=== PATIENT | female | born 1935 | race African-American/Black ===

== ENCOUNTER 2022-12-29 22:49 | Inpatient (IN) | payer BC, MEDICARE ==
[~2022-12-29] VITALS: Ht 167.6 cm; Wt 69.4 kg
[~2022-12-29 22:49] MED LIST: ATEN-42 PO; METF-414 PO; NATE120T PO; OMEP20CA4 PO
[2022-12-29 23:39] LABS: BASOPHILS % 0.4 % (0.0-2.0); EOSINOPHILS % 1.2 % (0.0-5.0); HEMATOCRIT. 36.7 % (36.0-48.0); HEMOGLOBIN. 12.3 g/dL (12.0-16.0); LYMPHOCYTES % 11.5 % (20.0-50.0); MEAN CORPUSCULAR HEMOGLOBIN 27.7 pg (28.0-32.0); MEAN CORPUSCULAR VOLUME 82.7 fL (81.0-99.0); MEAN PLATELET VOLUME 8.7 fl (7.4-10.4); MONOCYTES % 3.9 % (2.0-8.0); PLATELET 332 x1000/uL (130-400); RED BLOOD CELL COUNT 4.43 mill/uL (4.2-5.4); RED CELL DISTRIBUTION WIDTH 18.2 % (11.6-14.6)
[2022-12-29 23:47] LABS: CHLORIDE 103 mEq/L (98-107)
[2022-12-29 23:51] LABS: INR 1.1; PARTIAL THROMBOPLASTIN TIME 28.2 sec (23.4-31.0); PROTHROMBIN TIME 11.4 sec (9.6-11.0)
[2022-12-30] MEDS ORDERED: FUROSEMIDE 40MG/4ML VIAL IVP ONE (00:15)
[2022-12-30 00:24] LABS: CLARITY URINE CLOUDY (CLEAR); COLOR URINE YELLOW (YELLOW); KETONES URINE TRACE (NEGATIVE); LEUKOCYTE ESTERASE URINE NEGATIVE (NEGATIVE); NITRITE URINE NEGATIVE (NEGATIVE); OCCULT BLOOD URINE NEGATIVE (NEGATIVE); PROTEIN URINE 3+ (NEGATIVE)
[2022-12-30] MEDS ORDERED: FUROSEMIDE 40MG/4ML VIAL ONE (00:55)
[2022-12-30] MEDS ORDERED: POTA-185 PO (05:01)
[2022-12-30] MEDS ORDERED: DAPA10TA PO (05:01)
[2022-12-30] MEDS ORDERED: FURO40TA5 PO (05:01)
[2022-12-30] MEDS ORDERED: QUET25TA36 PO (05:01)
[2022-12-30] MEDS ORDERED: ATOR20TA65 PO (05:01)
[2022-12-30] MEDS ORDERED: LORA2TAB95 PO (05:01)
[2022-12-30] MEDS ORDERED: PANT40TA51 PO (05:01)
[2022-12-30 05:07] VITALS: BP 139/63
[2022-12-30 05:20] VITALS: BP 139/63
[2022-12-30] MEDS ORDERED: ONDANSETRON HCL 4MG/2ML INJ IV PRN (10:15)
[2022-12-30] MEDS ORDERED: FUROSEMIDE 40MG/4ML VIAL IVP SCH (10:30)
[2022-12-30] MEDS ORDERED: IPRATROPIUM/ALBUTEROL 0.5-3(2.5)MG/3ML NEB HHN PRN (10:30)
[2022-12-30] MEDS ORDERED: CARVEDILOL 3.125 MG TABLET PO SCH (11:00)
[2022-12-30 12:00] VITALS: BP 100/63
[2022-12-30] MEDS ORDERED: IPRATROPIUM/ALBUTEROL 0.5-3(2.5)MG/3ML NEB HHN SCH ×2 (12:00→14:45)
[2022-12-30] MEDS: ATORVASTATIN CALCIUM 20MG TABLET PO SCH (12:28)
[2022-12-30] MEDS: ASPIRIN 81MG TABLET PO SCH (12:28)
[2022-12-30] MEDS: ATENOLOL 25MG TABLET PO SCH ×2 (12:28→16:54)
[2022-12-30] MEDS: ENOXAPARIN 30MG/0.3ML SYR SUBCUT SCH (12:28)
[2022-12-30] MEDS: AZITHROMYCIN 500 MG in DEXT 5% WATER 250 ML IV SCH (13:32)
[2022-12-30] MEDS: CEFTRIAXONE 1,000 MG in DEXTROSE 5% WATER 50 ML IV SCH (13:33)
[2022-12-30 14:10] LABS: BG BASE EXCESS -0.4 mmol/L (-2.0-2.0); BG CARBOXYHEMOGLOBIN 0.9 % (0.5-1.5); BG FRACTION INSPIRED OXYGEN 21; BG HCO3 ACT 24.6 mmol/L (22.0-26.0); BG METHEMOGLOBIN 0.3 % (0.0-1.5); BG OXYGEN SATURATION 91.9 % (92.0-98.5); BG OXYHEMOGLOBIN 90.8 % (94.0-97.0); BG PCO2 41.5 mmHg (35.0-45.0); BG PO2 65.5 mmHg (75.0-100.0); BG SAMPLE SITE RIGHT BRACHIAL; BG TOTAL HEMOGLOBIN 12.6 g/dL (12.0-18.0); BG VENT MODE ROOM AIR
[2022-12-30] MEDS: PANTOPRAZOLE 40MG DR TABLET PO SCH (15:00)
[2022-12-30 16:00] VITALS: BP 101/73
[2022-12-30] MEDS: IPRATROPIUM/ALBUTEROL 0.5-3(2.5)MG/3ML NEB HHN SCH ×2 (16:37→20:58)
[2022-12-30] MEDS: INSULIN LISPRO 100 UNITS/ML SUBCUT SCH ×2 (16:54→21:00)
[2022-12-30] MEDS: BLOOD SUGAR DIAGNOSTIC STRIP TEST SCH ×2 (16:58→21:00)
[2022-12-30] MEDS: QUETIAPINE FUMARATE 25MG TABLET PO SCH (19:42)
[2022-12-30 20:00] VITALS: BP 123/49
[2022-12-30] MEDS ORDERED: DEXAMETHASONE 10 MG/ML VIAL IV SCH (22:00)
[2022-12-31] VITALS: BP 130/51
[2022-12-31] MEDS: IPRATROPIUM/ALBUTEROL 0.5-3(2.5)MG/3ML NEB HHN SCH ×4 (00:21→20:23)
[2022-12-31 01:21] LABS: CREATINE KINASE 60 IU/L (26-192)
[2022-12-31 04:00] VITALS: BP 105/64
[2022-12-31 06:38] LABS: BASOPHILS % 1.1 % (0.0-2.0); EOSINOPHILS % 2.4 % (0.0-5.0); HEMATOCRIT. 29.6 % (36.0-48.0); HEMOGLOBIN. 10.2 g/dL (12.0-16.0); LYMPHOCYTES % 14.9 % (20.0-50.0); MEAN CORPUSCULAR HEMOGLOBIN 28.2 pg (28.0-32.0); MEAN CORPUSCULAR VOLUME 82.5 fL (81.0-99.0); MEAN PLATELET VOLUME 9.3 fl (7.4-10.4); MONOCYTES % 8.1 % (2.0-8.0); NEUTROPHILS % 73.5 % (40.0-76.0); PLATELET 273 x1000/uL (130-400); RED BLOOD CELL COUNT 3.59 mill/uL (4.2-5.4); RED CELL DISTRIBUTION WIDTH 18.2 % (11.6-14.6)
[2022-12-31] MEDS: BLOOD SUGAR DIAGNOSTIC STRIP TEST SCH ×4 (07:40→21:42)
[2022-12-31 08:00] VITALS: BP 138/63
[2022-12-31] MEDS: INSULIN LISPRO 100 UNITS/ML SUBCUT SCH ×4 (08:10→21:00)
[2022-12-31] MEDS ORDERED: PANTOPRAZOLE 40MG DR TABLET PO SCH (09:00)
[2022-12-31] MEDS ORDERED: SODIUM POLYSTYRENE SULFONATE 15 G/60 ML BOT PO NR (09:30)
[2022-12-31] MEDS: ATORVASTATIN CALCIUM 20MG TABLET PO SCH (09:53)
[2022-12-31] MEDS: ENOXAPARIN 30MG/0.3ML SYR SUBCUT SCH (09:54)
[2022-12-31] MEDS: ASPIRIN 81MG TABLET PO SCH (09:54)
[2022-12-31] MEDS: PANTOPRAZOLE 40MG DR TABLET PO SCH (09:54)
[2022-12-31] MEDS: SODIUM CHLORIDE 0.9% 1,000 ML IV SCH (10:01)
[2022-12-31 11:24] LABS: *AMPHETAMINES SCREEN URINE NEGATIVE (NEGATIVE); *BARBITURATES SCREEN URINE NEGATIVE (NEGATIVE); *BENZODIAZEPINES SCREEN URINE NEGATIVE (NEGATIVE); *COCAINE SCREEN URINE NEGATIVE (NEGATIVE); CANNABINOID URINE SCREEN NEGATIVE (NEGATIVE); METHADONE URINE SCREEN NEGATIVE (NEGATIVE); OPIATES URINE SCREEN NEGATIVE (NEGATIVE); PHENCYCLIDINE URINE SCREEN NEGATIVE (NEGATIVE)
[2022-12-31 12:00] VITALS: BP 114/57
[2022-12-31] MEDS: AZITHROMYCIN 500 MG in DEXT 5% WATER 250 ML IV SCH (12:36)
[2022-12-31] MEDS: CEFTRIAXONE 1,000 MG in DEXTROSE 5% WATER 50 ML IV SCH (12:36)
[2022-12-31 16:00] VITALS: BP 112/61
[2022-12-31] MEDS ORDERED: LORA-250 PO (18:51)
[2022-12-31] MEDS ORDERED: APIX2.5T PO (18:52)
[2022-12-31] MEDS ORDERED: METO-396 PO (18:52)
[2022-12-31] MEDS ORDERED: AMI2 PO (18:53)
[2022-12-31] MEDS ORDERED: QUET25TA PO (18:54)
[2022-12-31] MEDS ORDERED: ENOXAPARIN 40MG/0.4ML SYR SUBCUT SCH (19:00)
[2022-12-31] MEDS: DEXAMETHASONE 4MG/ML 1ML VIAL IV SCH (20:21)
[2022-12-31] MEDS: QUETIAPINE FUMARATE 25MG TABLET PO SCH (20:22)
[2022-12-31 20:47] VITALS: BP 122/62
[2023-01-01 00:44] VITALS: BP 114/51
[2023-01-01] MEDS: IPRATROPIUM/ALBUTEROL 0.5-3(2.5)MG/3ML NEB HHN SCH ×6 (01:05→21:14)
[2023-01-01 04:00] VITALS: BP 138/66
[2023-01-01] MEDS: BLOOD SUGAR DIAGNOSTIC STRIP TEST SCH ×4 (06:07→20:51)
[2023-01-01] MEDS: INSULIN LISPRO 100 UNITS/ML SUBCUT SCH ×4 (06:08→20:51)
[2023-01-01 06:57] LABS: BASOPHILS % 0.1 % (0.0-2.0); EOSINOPHILS % 0.1 % (0.0-5.0); HEMATOCRIT. 29.5 % (36.0-48.0); HEMOGLOBIN. 9.9 g/dL (12.0-16.0); LYMPHOCYTES % 16.7 % (20.0-50.0); MEAN CORPUSCULAR HEMOGLOBIN 27.7 pg (28.0-32.0); MEAN CORPUSCULAR VOLUME 82.6 fL (81.0-99.0); MEAN PLATELET VOLUME 9.3 fl (7.4-10.4); MONOCYTES % 3.8 % (2.0-8.0); NEUTROPHILS % 79.3 % (40.0-76.0); PLATELET 291 x1000/uL (130-400); RED BLOOD CELL COUNT 3.57 mill/uL (4.2-5.4); RED CELL DISTRIBUTION WIDTH 18.2 % (11.6-14.6)
[2023-01-01 08:00] VITALS: BP 150/76
[2023-01-01] MEDS: ATORVASTATIN CALCIUM 20MG TABLET PO SCH (09:00)
[2023-01-01] MEDS: ASPIRIN 81MG TABLET PO SCH (10:10)
[2023-01-01] MEDS: FAMOTIDINE 20MG TABLET PO SCH (10:10)
[2023-01-01] MEDS: ENOXAPARIN 80MG/0.8ML SYR SUBCUT SCH (10:10)
[2023-01-01] MEDS: DEXAMETHASONE 4MG/ML 1ML VIAL IV SCH (10:10)
[2023-01-01 12:00] VITALS: BP 144/69
[2023-01-01 16:00] VITALS: BP 148/88
[2023-01-01] MEDS: AZITHROMYCIN 500 MG in DEXT 5% WATER 250 ML IV SCH (16:33)
[2023-01-01] MEDS: CEFTRIAXONE 1,000 MG in DEXTROSE 5% WATER 50 ML IV SCH (16:33)
[2023-01-01 20:00] VITALS: BP 137/58
[2023-01-01] MEDS: QUETIAPINE FUMARATE 25MG TABLET PO SCH (21:10)
[2023-01-02] VITALS: BP 121/58
[2023-01-02] MEDS: IPRATROPIUM/ALBUTEROL 0.5-3(2.5)MG/3ML NEB HHN SCH ×6 (01:05→20:38)
[2023-01-02 04:00] VITALS: BP 118/54
[2023-01-02] MEDS: BLOOD SUGAR DIAGNOSTIC STRIP TEST SCH ×4 (07:40→21:00)
[2023-01-02 08:00] VITALS: BP 115/64
[2023-01-02] MEDS: INSULIN LISPRO 100 UNITS/ML SUBCUT SCH ×4 (08:10→21:00)
[2023-01-02 09:06] LABS: IMMUNOGLOBULIN A 527 mg/dL (64-422); IMMUNOGLOBULIN G 3240 mg/dL (586-1602); IMMUNOGLOBULIN M 40 mg/dL (26-217)
[2023-01-02] MEDS: ATORVASTATIN CALCIUM 20MG TABLET PO SCH (10:20)
[2023-01-02] MEDS: DEXAMETHASONE 4MG TABLET PO SCH (10:20)
[2023-01-02] MEDS: ASPIRIN 81MG TABLET PO SCH (10:20)
[2023-01-02] MEDS: ENOXAPARIN 80MG/0.8ML SYR SUBCUT SCH (10:21)
[2023-01-02 11:54] LABS: BASOPHILS % 0.2 % (0.0-2.0); EOSINOPHILS % 0.1 % (0.0-5.0); HEMATOCRIT. 29.2 % (36.0-48.0); HEMOGLOBIN. 10.1 g/dL (12.0-16.0); LYMPHOCYTES % 12.7 % (20.0-50.0); MEAN CORPUSCULAR HEMOGLOBIN 28.5 pg (28.0-32.0); MEAN CORPUSCULAR VOLUME 82.2 fL (81.0-99.0); PLATELET 315 x1000/uL (130-400); RED BLOOD CELL COUNT 3.55 mill/uL (4.2-5.4); RED CELL DISTRIBUTION WIDTH 18.3 % (11.6-14.6)
[2023-01-02 12:00] VITALS: BP 120/71
[2023-01-02 16:00] VITALS: BP 124/60
[2023-01-02 20:00] VITALS: BP 149/94
[2023-01-02] MEDS: QUETIAPINE FUMARATE 25MG TABLET PO SCH (21:00)
[2023-01-03] VITALS: BP 137/65
[2023-01-03] MEDS: IPRATROPIUM/ALBUTEROL 0.5-3(2.5)MG/3ML NEB HHN SCH ×5 (00:46→16:33)
[2023-01-03 04:00] VITALS: BP 115/55
[2023-01-03] MEDS: BLOOD SUGAR DIAGNOSTIC STRIP TEST SCH ×4 (06:00→21:00)
[2023-01-03 06:49] LABS: BASOPHILS % 0.1 % (0.0-2.0); HEMATOCRIT. 30.2 % (36.0-48.0); HEMOGLOBIN. 10.4 g/dL (12.0-16.0); LYMPHOCYTES % 11.3 % (20.0-50.0); MEAN CORPUSCULAR HEMOGLOBIN 28.4 pg (28.0-32.0); MEAN CORPUSCULAR VOLUME 82.5 fL (81.0-99.0); MEAN PLATELET VOLUME 8.9 fl (7.4-10.4); MONOCYTES % 11.8 % (2.0-8.0); NEUTROPHILS % 76.8 % (40.0-76.0); PLATELET 295 x1000/uL (130-400); RED BLOOD CELL COUNT 3.67 mill/uL (4.2-5.4); RED CELL DISTRIBUTION WIDTH 18.3 % (11.6-14.6)
[2023-01-03 08:00] VITALS: BP 124/60
[2023-01-03] MEDS: INSULIN LISPRO 100 UNITS/ML SUBCUT SCH ×3 (08:10→21:00)
[2023-01-03] MEDS: ASPIRIN 81MG TABLET PO SCH (09:51)
[2023-01-03] MEDS: DEXAMETHASONE 4MG TABLET PO SCH (09:51)
[2023-01-03] MEDS: FAMOTIDINE 20MG TABLET PO SCH (09:51)
[2023-01-03] MEDS: ENOXAPARIN 80MG/0.8ML SYR SUBCUT SCH (09:51)
[2023-01-03] MEDS: ATORVASTATIN CALCIUM 20MG TABLET PO SCH (09:51)
[2023-01-03 12:00] VITALS: BP 118/79
[2023-01-03 16:00] VITALS: BP 118/59
[2023-01-03 20:00] VITALS: BP 120/72
[2023-01-03] MEDS: SODIUM CHLORIDE 0.9% 1,000 ML IV SCH (20:20)
[2023-01-03] MEDS: QUETIAPINE FUMARATE 25MG TABLET PO SCH (22:21)
[2023-01-04] VITALS: BP 123/70
[2023-01-04] MEDS: IPRATROPIUM/ALBUTEROL 0.5-3(2.5)MG/3ML NEB HHN SCH ×4 (00:45→12:25)
[2023-01-04 04:00] VITALS: BP 104/71
[2023-01-04 05:54] LABS: BASOPHILS % 0.1 % (0.0-2.0); EOSINOPHILS % 0.1 % (0.0-5.0); HEMATOCRIT. 29.5 % (36.0-48.0); HEMOGLOBIN. 10.1 g/dL (12.0-16.0); LYMPHOCYTES % 10.6 % (20.0-50.0); MEAN CORPUSCULAR HEMOGLOBIN 28.3 pg (28.0-32.0); MEAN CORPUSCULAR VOLUME 82.6 fL (81.0-99.0); MONOCYTES % 9.9 % (2.0-8.0); NEUTROPHILS % 79.3 % (40.0-76.0); PLATELET 280 x1000/uL (130-400); RED BLOOD CELL COUNT 3.58 mill/uL (4.2-5.4); RED CELL DISTRIBUTION WIDTH 18.7 % (11.6-14.6)
[2023-01-04] MEDS: BLOOD SUGAR DIAGNOSTIC STRIP TEST SCH ×4 (07:40→20:59)
[2023-01-04 08:00] VITALS: BP 147/70
[2023-01-04] MEDS: INSULIN LISPRO 100 UNITS/ML SUBCUT SCH ×4 (08:10→20:59)
[2023-01-04] MEDS: ATORVASTATIN CALCIUM 20MG TABLET PO SCH (08:53)
[2023-01-04] MEDS: DEXAMETHASONE 4MG TABLET PO SCH (08:53)
[2023-01-04] MEDS: ENOXAPARIN 80MG/0.8ML SYR SUBCUT SCH (08:54)
[2023-01-04 12:00] VITALS: BP 111/69
[2023-01-04 16:00] VITALS: BP 138/71
[2023-01-04] MEDS: SODIUM CHLORIDE 0.9% 1,000 ML IV SCH (17:38)
[2023-01-04 20:00] VITALS: BP 173/89
[2023-01-04] MEDS: QUETIAPINE FUMARATE 25MG TABLET PO SCH (21:22)
[2023-01-04] MEDS: CLONIDINE 0.1MG TABLET PO PRN (21:23)
[2023-01-05] VITALS: BP 146/71
[2023-01-05 04:00] VITALS: BP 129/87
[2023-01-05] MEDS: SODIUM CHLORIDE 0.9% 1,000 ML IV SCH (04:56)
[2023-01-05] MEDS: BLOOD SUGAR DIAGNOSTIC STRIP TEST SCH ×3 (07:40→20:54)
[2023-01-05 08:10] VITALS: BP 154/75
[2023-01-05] MEDS: INSULIN LISPRO 100 UNITS/ML SUBCUT SCH ×3 (08:10→20:55)
[2023-01-05] MEDS: DEXAMETHASONE 4MG TABLET PO SCH (09:43)
[2023-01-05] MEDS: ASPIRIN 81MG TABLET PO SCH (09:43)
[2023-01-05] MEDS: ENOXAPARIN 80MG/0.8ML SYR SUBCUT SCH (09:43)
[2023-01-05] MEDS: ATORVASTATIN CALCIUM 20MG TABLET PO SCH (09:43)
[2023-01-05] MEDS: FAMOTIDINE 20MG TABLET PO SCH (09:57)
[2023-01-05 11:46] VITALS: BP 151/68
[2023-01-05 16:08] VITALS: BP 178/89
[2023-01-05 20:00] VITALS: BP 154/79
[2023-01-05] MEDS: FUROSEMIDE 40MG TABLET PO SCH (21:08)
[2023-01-05] MEDS: QUETIAPINE FUMARATE 25MG TABLET PO SCH (21:08)
[2023-01-06] VITALS: BP 146/76
[2023-01-06 04:00] VITALS: BP 139/79
[2023-01-06 06:32] LABS: BASOPHILS % 0.3 % (0.0-2.0); HEMATOCRIT. 31.8 % (36.0-48.0); HEMOGLOBIN. 10.6 g/dL (12.0-16.0); LYMPHOCYTES % 14.8 % (20.0-50.0); MEAN CORPUSCULAR HEMOGLOBIN 27.5 pg (28.0-32.0); MEAN CORPUSCULAR VOLUME 82.3 fL (81.0-99.0); MEAN PLATELET VOLUME 8.9 fl (7.4-10.4); MONOCYTES % 8.6 % (2.0-8.0); NEUTROPHILS % 73.3 % (40.0-76.0); PLATELET 297 x1000/uL (130-400); RED BLOOD CELL COUNT 3.86 mill/uL (4.2-5.4); RED CELL DISTRIBUTION WIDTH 18.5 % (11.6-14.6)
[2023-01-06] MEDS: BLOOD SUGAR DIAGNOSTIC STRIP TEST SCH ×4 (07:40→21:00)
[2023-01-06] MEDS: INSULIN LISPRO 100 UNITS/ML SUBCUT SCH ×4 (08:10→21:00)
[2023-01-06] MEDS: DEXAMETHASONE 4MG TABLET PO SCH (08:54)
[2023-01-06] MEDS: DEXTROSE 50% WATER 50ML SYRINGE IV PRN (08:54)
[2023-01-06] MEDS: ASPIRIN 81MG TABLET PO SCH (08:54)
[2023-01-06] MEDS: ATORVASTATIN CALCIUM 20MG TABLET PO SCH (08:54)
[2023-01-06] MEDS: FUROSEMIDE 40MG TABLET PO SCH ×2 (08:54→20:41)
[2023-01-06] MEDS: ENOXAPARIN 80MG/0.8ML SYR SUBCUT SCH (08:55)
[2023-01-06] MEDS: ACETAMINOPHEN 325MG TABLET PO PRN (08:56)
[2023-01-06 12:00] VITALS: BP 157/88
[2023-01-06 16:00] VITALS: BP 148/77
[2023-01-06 20:00] VITALS: BP 170/97
[2023-01-06] MEDS: QUETIAPINE FUMARATE 25MG TABLET PO SCH (20:40)
[2023-01-06] MEDS: CLONIDINE 0.1MG TABLET PO PRN (20:41)
[2023-01-07] VITALS: BP 137/84
[2023-01-07 04:00] VITALS: BP 153/76
[2023-01-07 06:37] LABS: BASOPHILS % 0.1 % (0.0-2.0); EOSINOPHILS % 0.4 % (0.0-5.0); HEMATOCRIT. 31.5 % (36.0-48.0); HEMOGLOBIN. 10.7 g/dL (12.0-16.0); LYMPHOCYTES % 11.7 % (20.0-50.0); MEAN CORPUSCULAR VOLUME 82.1 fL (81.0-99.0); MEAN PLATELET VOLUME 8.9 fl (7.4-10.4); MONOCYTES % 7.8 % (2.0-8.0); PLATELET 298 x1000/uL (130-400); RED BLOOD CELL COUNT 3.83 mill/uL (4.2-5.4); RED CELL DISTRIBUTION WIDTH 18.7 % (11.6-14.6)
[2023-01-07] MEDS: BLOOD SUGAR DIAGNOSTIC STRIP TEST SCH ×4 (07:40→21:00)
[2023-01-07 08:00] VITALS: BP 143/72
[2023-01-07 08:00] LABS: CHLORIDE 108 mEq/L (98-107)
[2023-01-07] MEDS: INSULIN LISPRO 100 UNITS/ML SUBCUT SCH ×4 (08:10→21:00)
[2023-01-07] MEDS: FUROSEMIDE 40MG TABLET PO SCH ×2 (09:15→22:11)
[2023-01-07] MEDS: ASPIRIN 81MG TABLET PO SCH (09:15)
[2023-01-07] MEDS: FAMOTIDINE 20MG TABLET PO SCH (09:15)
[2023-01-07] MEDS: ATORVASTATIN CALCIUM 20MG TABLET PO SCH (09:15)
[2023-01-07] MEDS: DEXAMETHASONE 4MG TABLET PO SCH (09:15)
[2023-01-07] MEDS: ENOXAPARIN 80MG/0.8ML SYR SUBCUT SCH (09:17)
[2023-01-07 12:00] VITALS: BP 138/79
[2023-01-07 16:00] VITALS: BP 118/75
[2023-01-07 20:00] VITALS: BP 126/93
[2023-01-07] MEDS: QUETIAPINE FUMARATE 25MG TABLET PO SCH (22:11)
[2023-01-08] VITALS: BP 149/69
[2023-01-08 04:00] VITALS: BP 151/67
[2023-01-08 06:43] LABS: INR 1.1; PARTIAL THROMBOPLASTIN TIME 25.9 sec (23.4-31.0); PROTHROMBIN TIME 11.4 sec (9.6-11.0)
[2023-01-08 06:50] LABS: CHLORIDE 104 mEq/L (98-107)
[2023-01-08] MEDS: BLOOD SUGAR DIAGNOSTIC STRIP TEST SCH ×4 (07:06→21:14)
[2023-01-08] MEDS: INSULIN LISPRO 100 UNITS/ML SUBCUT SCH ×4 (07:06→21:00)
[2023-01-08] MEDS ORDERED: METOLAZONE 2.5MG TABLET PO NR (07:45)
[2023-01-08 08:00] VITALS: BP 132/68
[2023-01-08] MEDS: FUROSEMIDE 40MG TABLET PO SCH ×2 (11:20→21:17)
[2023-01-08] MEDS: ATORVASTATIN CALCIUM 20MG TABLET PO SCH (11:20)
[2023-01-08] MEDS: DEXAMETHASONE 4MG TABLET PO SCH (11:20)
[2023-01-08 12:00] VITALS: BP 150/72
[2023-01-08] MEDS: DEXTROSE 50% WATER 50ML SYRINGE IV PRN (13:34)
[2023-01-08 16:00] VITALS: BP 138/64
[2023-01-08 20:00] VITALS: BP 124/70
[2023-01-08] MEDS: QUETIAPINE FUMARATE 25MG TABLET PO SCH (21:13)
[2023-01-09] VITALS: BP 130/67
[2023-01-09 04:00] VITALS: BP 135/57
[2023-01-09] MEDS: BLOOD SUGAR DIAGNOSTIC STRIP TEST SCH ×4 (06:25→21:19)
[2023-01-09 07:06] LABS: BASOPHILS % 0.2 % (0.0-2.0); EOSINOPHILS % 1.7 % (0.0-5.0); HEMOGLOBIN. 10.8 g/dL (12.0-16.0); LYMPHOCYTES % 14.4 % (20.0-50.0); MEAN CORPUSCULAR HEMOGLOBIN 27.4 pg (28.0-32.0); MEAN CORPUSCULAR VOLUME 81.2 fL (81.0-99.0); MEAN PLATELET VOLUME 8.6 fl (7.4-10.4); MONOCYTES % 9.1 % (2.0-8.0); NEUTROPHILS % 74.6 % (40.0-76.0); PLATELET 244 x1000/uL (130-400); RED BLOOD CELL COUNT 3.94 mill/uL (4.2-5.4)
[2023-01-09] MEDS: INSULIN LISPRO 100 UNITS/ML SUBCUT SCH ×4 (07:21→21:00)
[2023-01-09 08:00] VITALS: BP 129/63
[2023-01-09] MEDS ORDERED: LIDOCAINE HCL 1% 10 MG/ML 10ML VIAL ONE (08:22)
[2023-01-09] MEDS ORDERED: SODIUM BICARBONATE 4% (2.4MEQ) 5ML VIAL IV ONE (08:22)
[2023-01-09] MEDS: FUROSEMIDE 40MG TABLET PO SCH ×2 (09:27→21:19)
[2023-01-09] MEDS: DEXAMETHASONE 4MG TABLET PO SCH (09:28)
[2023-01-09] MEDS: FAMOTIDINE 20MG TABLET PO SCH (09:28)
[2023-01-09 12:00] VITALS: BP 116/62
[2023-01-09 16:00] VITALS: BP 115/70
[2023-01-09] MEDS: ACETAMINOPHEN 325MG TABLET PO PRN (17:44)
[2023-01-09 20:00] VITALS: BP 133/70
[2023-01-09] MEDS: ATORVASTATIN CALCIUM 20MG TABLET PO SCH (21:19)
[2023-01-09] MEDS: QUETIAPINE FUMARATE 25MG TABLET PO SCH (21:19)
[2023-01-10 00:03] VITALS: BP 127/69
[2023-01-10 04:00] VITALS: BP 123/69
[2023-01-10] MEDS: BLOOD SUGAR DIAGNOSTIC STRIP TEST SCH ×4 (07:06→21:00)
[2023-01-10] MEDS: INSULIN LISPRO 100 UNITS/ML SUBCUT SCH ×4 (07:06→21:50)
[2023-01-10 08:00] VITALS: BP 124/75
[2023-01-10] MEDS ORDERED: SODIUM BICARBONATE 4% (2.4MEQ) 5ML VIAL IV ONE (08:02)
[2023-01-10] MEDS: FUROSEMIDE 40MG TABLET PO SCH ×2 (09:00→21:33)
[2023-01-10] MEDS: DEXAMETHASONE 4MG TABLET PO SCH (09:00)
[2023-01-10 09:16] LABS: BASOPHILS % 0.1 % (0.0-2.0); EOSINOPHILS % 0.2 % (0.0-5.0); HEMATOCRIT. 31.3 % (36.0-48.0); HEMOGLOBIN. 10.5 g/dL (12.0-16.0); LYMPHOCYTES % 15.8 % (20.0-50.0); MEAN CORPUSCULAR HEMOGLOBIN 27.5 pg (28.0-32.0); MEAN CORPUSCULAR VOLUME 81.9 fL (81.0-99.0); MONOCYTES % 7.9 % (2.0-8.0); PLATELET 225 x1000/uL (130-400); RED BLOOD CELL COUNT 3.83 mill/uL (4.2-5.4)
[2023-01-10 12:00] VITALS: BP 127/76
[2023-01-10 16:00] VITALS: BP 130/69
[2023-01-10 20:00] VITALS: BP 117/68
[2023-01-10] MEDS: ATORVASTATIN CALCIUM 20MG TABLET PO SCH (21:33)
[2023-01-10] MEDS: QUETIAPINE FUMARATE 25MG TABLET PO SCH (21:33)
[2023-01-11 00:51] VITALS: BP 132/79
[2023-01-11 04:00] VITALS: BP 104/74
[2023-01-11 05:51] LABS: BASOPHILS % 0.2 % (0.0-2.0); EOSINOPHILS % 2.4 % (0.0-5.0); HEMATOCRIT. 33.7 % (36.0-48.0); HEMOGLOBIN. 11.6 g/dL (12.0-16.0); LYMPHOCYTES % 13.5 % (20.0-50.0); MEAN CORPUSCULAR HEMOGLOBIN 27.9 pg (28.0-32.0); MEAN CORPUSCULAR VOLUME 81.1 fL (81.0-99.0); MEAN PLATELET VOLUME 9.4 fl (7.4-10.4); MONOCYTES % 7.3 % (2.0-8.0); NEUTROPHILS % 76.6 % (40.0-76.0); PLATELET 205 x1000/uL (130-400); RED BLOOD CELL COUNT 4.16 mill/uL (4.2-5.4); RED CELL DISTRIBUTION WIDTH 19.3 % (11.6-14.6)
[2023-01-11] MEDS: BLOOD SUGAR DIAGNOSTIC STRIP TEST SCH ×4 (05:53→21:00)
[2023-01-11] MEDS: INSULIN LISPRO 100 UNITS/ML SUBCUT SCH ×4 (05:53→22:10)
[2023-01-11 08:00] VITALS: BP 117/45
[2023-01-11] MEDS: FAMOTIDINE 20MG TABLET PO SCH (09:17)
[2023-01-11] MEDS: FUROSEMIDE 40MG TABLET PO SCH ×2 (09:17→22:00)
[2023-01-11] MEDS: DEXAMETHASONE 4MG TABLET PO SCH (09:17)
[2023-01-11 12:00] VITALS: BP 140/75
[2023-01-11 16:00] VITALS: BP 129/78
[2023-01-11] MEDS: ATORVASTATIN CALCIUM 20MG TABLET PO SCH (22:00)
[2023-01-11] MEDS: QUETIAPINE FUMARATE 25MG TABLET PO SCH (22:00)
[2023-01-12] VITALS: BP 103/50
[2023-01-12 04:00] VITALS: BP 118/58
[2023-01-12] MEDS: BLOOD SUGAR DIAGNOSTIC STRIP TEST SCH ×4 (07:40→21:00)
[2023-01-12 08:00] VITALS: BP 110/50
[2023-01-12] MEDS: INSULIN LISPRO 100 UNITS/ML SUBCUT SCH ×4 (08:10→22:29)
[2023-01-12] MEDS: DEXAMETHASONE 2MG TABLET PO SCH (09:14)
[2023-01-12] MEDS: FUROSEMIDE 40MG TABLET PO SCH (09:14)
[2023-01-12 11:23] LABS: BASOPHILS % 0.2 % (0.0-2.0); EOSINOPHILS % 0.5 % (0.0-5.0); HEMATOCRIT. 30.8 % (36.0-48.0); HEMOGLOBIN. 10.3 g/dL (12.0-16.0); LYMPHOCYTES % 12.3 % (20.0-50.0); MEAN CORPUSCULAR HEMOGLOBIN 27.5 pg (28.0-32.0); MEAN CORPUSCULAR VOLUME 81.9 fL (81.0-99.0); MEAN PLATELET VOLUME 9.3 fl (7.4-10.4); MONOCYTES % 6.7 % (2.0-8.0); NEUTROPHILS % 80.3 % (40.0-76.0); PLATELET 188 x1000/uL (130-400); RED BLOOD CELL COUNT 3.76 mill/uL (4.2-5.4); RED CELL DISTRIBUTION WIDTH 19.1 % (11.6-14.6)
[2023-01-12 16:00] VITALS: BP 116/65
[2023-01-12 20:00] VITALS: BP 122/67
[2023-01-12] MEDS: QUETIAPINE FUMARATE 25MG TABLET PO SCH (22:30)
[2023-01-12] MEDS: ATORVASTATIN CALCIUM 20MG TABLET PO SCH (22:30)
[2023-01-13] VITALS: BP 120/60
[2023-01-13 04:00] VITALS: BP 120/61
[2023-01-13 05:45] LABS: BASOPHILS % 0.1 % (0.0-2.0); EOSINOPHILS % 0.4 % (0.0-5.0); HEMATOCRIT. 31.2 % (36.0-48.0); HEMOGLOBIN. 10.3 g/dL (12.0-16.0); LYMPHOCYTES % 12.5 % (20.0-50.0); MEAN CORPUSCULAR HEMOGLOBIN 27.1 pg (28.0-32.0); MEAN PLATELET VOLUME 9.3 fl (7.4-10.4); MONOCYTES % 6.7 % (2.0-8.0); NEUTROPHILS % 80.3 % (40.0-76.0); PLATELET 180 x1000/uL (130-400); RED BLOOD CELL COUNT 3.81 mill/uL (4.2-5.4); RED CELL DISTRIBUTION WIDTH 18.8 % (11.6-14.6)
[2023-01-13] MEDS: BLOOD SUGAR DIAGNOSTIC STRIP TEST SCH ×4 (07:40→21:30)
[2023-01-13 08:00] VITALS: BP 120/59
[2023-01-13] MEDS: INSULIN LISPRO 100 UNITS/ML SUBCUT SCH ×4 (08:10→21:45)
[2023-01-13] MEDS: FUROSEMIDE 40MG TABLET PO SCH (09:02)
[2023-01-13] MEDS: FAMOTIDINE 20MG TABLET PO SCH (09:02)
[2023-01-13] MEDS: DEXAMETHASONE 2MG TABLET PO SCH (09:02)
[2023-01-13 12:00] VITALS: BP 125/63
[2023-01-13] MEDS ORDERED: FUROSEMIDE 40MG/4ML VIAL IVP SCH (14:00)
[2023-01-13 16:00] VITALS: BP 112/54
[2023-01-13 20:00] VITALS: BP 122/64
[2023-01-13] MEDS: ATORVASTATIN CALCIUM 20MG TABLET PO SCH (21:46)
[2023-01-13] MEDS: QUETIAPINE FUMARATE 25MG TABLET PO SCH (21:46)
[2023-01-14] VITALS (7 sets, daily range): BP systolic 106–137; BP diastolic 62–74
[2023-01-14 05:40] LABS: BASOPHILS % 0.1 % (0.0-2.0); EOSINOPHILS % 0.3 % (0.0-5.0); LYMPHOCYTES % 11.1 % (20.0-50.0); MEAN CORPUSCULAR HEMOGLOBIN 27.2 pg (28.0-32.0); MEAN PLATELET VOLUME 9.6 fl (7.4-10.4); MONOCYTES % 6.2 % (2.0-8.0); NEUTROPHILS % 82.3 % (40.0-76.0); PLATELET 213 x1000/uL (130-400); RED BLOOD CELL COUNT 4.02 mill/uL (4.2-5.4); RED CELL DISTRIBUTION WIDTH 19.9 % (11.6-14.6)
[2023-01-14] MEDS: BLOOD SUGAR DIAGNOSTIC STRIP TEST SCH ×4 (06:13→20:33)
[2023-01-14] MEDS: INSULIN LISPRO 100 UNITS/ML SUBCUT SCH ×4 (06:13→20:35)
[2023-01-14] MEDS: DEXAMETHASONE 2MG TABLET PO SCH (08:36)
[2023-01-14] MEDS: FUROSEMIDE 40MG TABLET PO SCH (08:36)
[2023-01-14] MEDS: QUETIAPINE FUMARATE 25MG TABLET PO SCH (20:33)
[2023-01-14] MEDS: ATORVASTATIN CALCIUM 20MG TABLET PO SCH (20:46)
[2023-01-15 00:43] VITALS: BP 132/67
[2023-01-15 04:00] VITALS: BP 135/65
[2023-01-15] MEDS: BLOOD SUGAR DIAGNOSTIC STRIP TEST SCH ×4 (06:46→21:00)
[2023-01-15 07:19] LABS: BASOPHILS % 0.2 % (0.0-2.0); EOSINOPHILS % 0.9 % (0.0-5.0); HEMATOCRIT. 31.1 % (36.0-48.0); HEMOGLOBIN. 10.5 g/dL (12.0-16.0); LYMPHOCYTES % 8.5 % (20.0-50.0); MEAN CORPUSCULAR HEMOGLOBIN 27.6 pg (28.0-32.0); MEAN CORPUSCULAR VOLUME 81.9 fL (81.0-99.0); MEAN PLATELET VOLUME 9.4 fl (7.4-10.4); MONOCYTES % 8.2 % (2.0-8.0); NEUTROPHILS % 82.2 % (40.0-76.0); PLATELET 207 x1000/uL (130-400); RED CELL DISTRIBUTION WIDTH 19.6 % (11.6-14.6)
[2023-01-15 08:00] VITALS: BP 109/58
[2023-01-15] MEDS: INSULIN LISPRO 100 UNITS/ML SUBCUT SCH ×4 (08:06→22:16)
[2023-01-15] MEDS: FUROSEMIDE 40MG TABLET PO SCH ×2 (08:42→17:17)
[2023-01-15] MEDS: FAMOTIDINE 20MG TABLET PO SCH (08:42)
[2023-01-15] MEDS: DEXAMETHASONE 2MG TABLET PO SCH (08:43)
[2023-01-15 12:00] VITALS: BP 139/69
[2023-01-15 16:00] VITALS: BP 121/70
[2023-01-15 20:00] VITALS: BP 130/61
[2023-01-15] MEDS: QUETIAPINE FUMARATE 25MG TABLET PO SCH (22:15)
[2023-01-15] MEDS: ATORVASTATIN CALCIUM 20MG TABLET PO SCH (22:15)
[2023-01-16] VITALS: BP 136/80
[2023-01-16 04:00] VITALS: BP 129/76
[2023-01-16] MEDS: BLOOD SUGAR DIAGNOSTIC STRIP TEST SCH ×2 (06:18→12:36)
[2023-01-16 06:38] LABS: BASOPHILS % 0.2 % (0.0-2.0); EOSINOPHILS % 0.3 % (0.0-5.0); HEMATOCRIT. 35.1 % (36.0-48.0); HEMOGLOBIN. 12.3 g/dL (12.0-16.0); LYMPHOCYTES % 8.1 % (20.0-50.0); MEAN CORPUSCULAR HEMOGLOBIN 28.4 pg (28.0-32.0); MONOCYTES % 6.6 % (2.0-8.0); NEUTROPHILS % 84.8 % (40.0-76.0); PLATELET 220 x1000/uL (130-400); RED BLOOD CELL COUNT 4.33 mill/uL (4.2-5.4); RED CELL DISTRIBUTION WIDTH 19.8 % (11.6-14.6)
[2023-01-16] MEDS: INSULIN LISPRO 100 UNITS/ML SUBCUT SCH ×2 (07:50→12:36)
[2023-01-16 08:00] VITALS: BP 144/73
[2023-01-16] MEDS: DEXAMETHASONE 2MG TABLET PO SCH (08:40)
[2023-01-16] MEDS: FUROSEMIDE 40MG TABLET PO SCH (08:40)
[2023-01-16 10:20] VITALS: BP 144/73
[2023-01-16 12:00] VITALS: BP 147/74
== END 2023-01-16 17:30 | DRG 280 ==
LOC: ER 22:49 → MICUSO 12-30 01:22 → 7WST 12-30 04:44
PROVIDERS: ADMIT Internal Medicine; ATTEND Internal Medicine
PROC: 0W9G3ZZ Drainage of Peritoneal Cavity, Percutaneous Approach (ICD-10-PCS; principal; 2023-01-09)
PROC: 0W9B3ZZ Drainage of Left Pleural Cavity, Percutaneous Approach (ICD-10-PCS; 2023-01-10)
DX: I13.0 Hypertensive heart and chronic kidney disease with heart failure and stage 1 through stage 4 chronic kidney disease, or unspecified chronic kidney disease (principal); I21.4 Non-ST elevation (NSTEMI) myocardial infarction; E43 Unspecified severe protein-calorie malnutrition; J96.00 Acute respiratory failure, unspecified whether with hypoxia or hypercapnia; I50.23 Acute on chronic systolic (congestive) heart failure; N17.9 Acute kidney failure, unspecified; I47.20 Ventricular tachycardia, unspecified; E87.20 Acidosis, unspecified; R18.8 Other ascites; C56.9 Malignant neoplasm of unspecified ovary; E11.22 Type 2 diabetes mellitus with diabetic chronic kidney disease; Z20.822 Contact with and (suspected) exposure to COVID-19; I25.10 Atherosclerotic heart disease of native coronary artery without angina pectoris; N18.9 Chronic kidney disease, unspecified; K21.9 Gastro-esophageal reflux disease without esophagitis; I25.5 Ischemic cardiomyopathy; E78.5 Hyperlipidemia, unspecified; I48.0 Paroxysmal atrial fibrillation; D86.9 Sarcoidosis, unspecified; E86.9 Volume depletion, unspecified; K74.60 Unspecified cirrhosis of liver; F03.90 Unspecified dementia, unspecified severity, without behavioral disturbance, psychotic disturbance, mood disturbance, and anxiety; E88.09 Other disorders of plasma-protein metabolism, not elsewhere classified; I49.3 Ventricular premature depolarization; J44.9 Chronic obstructive pulmonary disease, unspecified; I25.2 Old myocardial infarction; Z90.710 Acquired absence of both cervix and uterus; Z95.810 Presence of automatic (implantable) cardiac defibrillator; Z79.82 Long term (current) use of aspirin; Z79.01 Long term (current) use of anticoagulants; Z79.899 Other long term (current) drug therapy; Z85.43 Personal history of malignant neoplasm of ovary; Z68.24 Body mass index [BMI] 24.0-24.9, adult; Z79.4 Long term (current) use of insulin
CPT/HCPCS: 32555; 36415; 36600; 49083; 71045; 71250; 76604; 76705; 76770; 80048; 80053; 80061; 80305; 81003; 82105; 82375; 82550; 82553; 82570; 82784; 82805; 82962; 83605; 83615; 83735; 83880; 83986; 84100; 84156; 84484; 85025; 86304; 86334; 87426; 88108; 93005; 93306; 94640; 97116; 97162; 97166; 99291; C1893; J0456; J0696; J1100; J1650; J1815; J1940; J2405; J3490; J7030; J7060; J8540